=== PATIENT | male | born 1940 | race Caucasian/White ===

== ENCOUNTER 2016-07-03 14:17 | Observation (INO) | payer MEDICARE, OTHER ==
[2016-07-03 14:58] LABS: Hematocrit 48.9 % (42.0-52.0); Hemoglobin 16.9 gm/dL (13.5-18.0); Mean Cell Volume 88.3 fl (78-100); Mean Corpuscular Hemoglobin 30.5 pg (27-31); Mean Corpuscular Hgb Conc 34.6 g/dl (32-36); Mean Platelet Volume 11.7 fl (6.0-9.5); Neutrophil # 3.9 K/mm3 (1.3-6.0); Neutrophil % 52.4 % (42-75.0); Platelet Count 195 K/mm3 (150-450); Red Blood Count 5.54 M/mm3 (4.7-6.0); Red Cell Distribution Width 13.7 % (11.5-14.0); White Blood Count 7.4 K/mm3 (4.0-10.5)
[2016-07-03 15:05] LABS: Albumin * 3.5 gm/dl (3.4-5.0); Anion Gap 12.3 mmol/L (6.8-13.8); BUN/Creatinine Ratio 14.6 (9.0-21.6); Bilirubin, Total 1.2 mg/dL (0.0-1.1); Ca. Corrected For Albumin 8.6 mg/dL (8.4-10.2); Calcium * 8.5 mg/dL (7.9-10.9); Carbon Dioxide 33.5 mmol/L (24-32.6); Potassium 2.8 mmol/L (3.4-4.6)
[2016-07-03] MEDS ORDERED: NORMAL SALINE 1,000 ML IV ONE (16:07)
--- OUTSIDE RECORDS SUMMARY | 2016-07-03 16:08 | XMS REPORT | Continuity of Care Document ---
:1940 Author Organization [facility] ([facility]) Address [address] [place] [address] Phone [phone] Care Team Providers Name Role Phone [phone], Self Referral Primary Care Provider [phone] Source Comments This disclosure is being made pursuant to the Care Everywhere program, applicable federal and state laws, and may not contain all informaitonavailable regarding this patient.[facility] ([facility]) Active Allergies and Adverse Reactions No Known Allergies Current Medications Prescription Sig. Disp. Refills Start Date End Date Status ATENOLOL 100 mg tablet Take 100 mg by 09/03/2014 Active mouth daily FUROSEMIDE 40 mg tablet Take 40 mg by 08/03/2014 Active mouth 2 times daily. HYDROCHLOROTHIAZIDE 25 mg Take 25 mg by 09/03/2014 Active tablet mouth daily HYDROCODONE-ACETAMINOPHEN Take 1 Tab by 08/31/2014 Active 5-325 mg per tablet mouth daily as needed LOSARTAN 100 mg tablet Take 100 mg by 09/28/2014 Active mouth daily warfarin 5 mg tablet take 1/2 tablet Active by oral route MWF, 1 tablet T,TH, Sat, Sun Active Problems Problem Noted Date Chronic atrial fibrillation 09/21/2014 Overview: Formatting of this note may be different from the original. CARDIOVASCULAR PROCEDURES Stress Tests: MPI (Normal EF, Normal study) - 01/20/2013 MPI (Normal EF, Normal study) - 09/23/2013 MPI (Normal EF, Normal study) - 04/21/2015 ECHO Echo: Normal EF. No significant valve disease. 09/11/2013 Echo: Normal EF. No significant valve disease. 05/10/2015 Essential hypertension, benign 09/21/2014 Atypical chest pain Anxiety Social History Tobacco Use Types Packs/Day Years Used Date Never Smoker Smokeless Tobacco: Never Used Alcohol Use Drinks/Week oz/Week Comments No Last Filed Vital Signs Vital Sign Reading Time Taken Blood Pressure 122/60 12/07/2015 12:19 PM CDT Pulse 82 12/07/2015 12:19 PM CDT Temperature - - Respiratory Rate - - Height 1.854 m (6' 1") 12/07/2015 12:19 PM CDT Weight 116.574 kg (257 lb) 12/07/2015 12:19 PM CDT Body Mass Index 33.91 12/07/2015 12:19 PM CDT Oxygen Saturation - - Plan of Care Date Type Specialty Providers Description 12/05/2016 Appointment Heart and Vascular MattMarisela MD Chief Comp: Patient [address] [place] [address] Visit [phone] (Fax) Health Maintenance Due Date Last Done Comments Hepatitis B Vaccine (1 of 3 - Primary Series) 1940 Tdap Vaccine 1953 Lipid Disorder Screening 1960 Td Vaccine 1960 Colonoscopy 05/07/1992 Prostate Cancer Screening 1992 Zoster Vaccine 2002 Pneumococcal Vaccine (1 of 2 - PCV13) 2007 Influenza Vaccine: Seasonal (#1) 11/29/2015 Results from Last 3 Months Not on file
[2016-07-03] MEDS ORDERED: POTASSIUM CHLORIDE 20 MEQ TABLET.SA PO ONE ×2 (16:09→17:38)
--- NOTE | 2016-07-03 16:10 | ERNOTE ---
Dizziness ER Record Date of Service: 07/03/16 Presenting Symptoms: dizziness Time Seen by Provider: 07/03/16 15:57 Source: patient, RN notes reviewed, old records Exam Limitations: no limitations Immunizations: IMMUNIZATION HX Immunizations Up to Date Yes History of Influenza Vaccine No Hx Pneumococcal Vaccination No Allergies/Adverse Reactions: Allergies Allergy/AdvReac Type Severity Reaction Status Date / Time No Known Allergies Allergy Verified 07/03/16 14:38 Home Medications: HOME MEDICATIONS Warfarin Sodium [Coumadin] 5 mg PO DAILY 02/17/13 [Last Taken Unknown] Atenolol [Tenormin (Atenolol)] 100 mg PO DAILY 09/30/13 [Last Taken Unknown] Furosemide [Lasix] 40 mg PO DAILY 09/30/13 [Last Taken Unknown] Hydrochlorothiazide 25 mg PO DAILY 09/30/13 [Last Taken Unknown] Losartan Potassium [Cozaar] 100 mg PO DAILY 01/31/14 [Last Taken Unknown] HYDROcodone/ACETAMINOPHEN [[place] 5-325] 1 - 2 tab PO Q4H PRN #15 tab 08/31/14 [ Last Taken Unknown] Albuterol Sulfate [Proair Respiclick] 90 mcg IH Q4H PRN 07/03/16 [Last Taken Unknown] - History of Present Illness Narrative: 76 y/o male brought to the ED from the clinic for a low blood pressure and dizziness/weakness. He was being seen today to get something for the cough that he has had for a week. He states that he has had fevers and has not been eating or drinking much. He has not been able to lay down to sleep due to the cough and shortness of breath. Review of Systems - Review of Systems Constitutional: Present: fever, chills, fatigue, malaise EYE: Present: no symptoms reported ENT: Present: nose congestion, nasal drainage. Absent: ear pain, sore throat Respiratory: Present: shortness of breath, cough, orthopnea Cardiology: Absent: chest pain, syncope, edema Gastrointestinal/Abdominal: Absent: nausea, vomiting, diarrhea Genitourinary: Present: no symptoms reported Musculoskeletal: Present: muscle pain Skin: Absent: rash, lesions Neurological: Present: headache, dizziness/light-headedness Endocrine: Present: no symptoms reported Hematologic/Lymphatic: Present: no symptoms reported Psych: Present: no symptoms reported - Patient's Past Medical History Patient History - Medical: Arthritis, Depression, UTI'S Patient History - Cardiac/Respiratory: Atrial Fibrillation, Hypertension Patient History - Cancer: No Hx of Cancer Patient History - Surgical Procedures: Other - Social History Living Situations: spouse Psych History: No pertinent hx Smoking Status: Former smoker Alcohol Use: occasionally Drug Use: none - Immunizations Immunizations Up to Date: Yes Hx Pneumococcal Vaccination: No History of Influenza Vaccine: No Physical Exam - Physical Exam General Appearance: Present: wd/wn, alert, no apparent distress, other - appears to not feel well Eye Exam: Normal inspection: bilateral Ears, Nose, Throat: Present: normal ENT inspection Neck: Present: normal inspection, nontender, supple Respiratory: Present: no respiratory distress, no accessory muscle use, expiration (prolonged), crackles, rhonchi, wheezing Cardiovascular/Chest: Present: irregularly irregular, systolic murmur Gastrointestinal/Abdominal: Present: normal bowel sounds, nontender, nondistended, soft Extremity Exam: Present: normal inspection, no edema Neurological Exam: Present: alert, oriented, normal mood/affect, no motor/ sensory deficits Skin Exam: Present: normal color, warm/dry ED Progress - Results and Orders Patient's Lab Results:: I have reviewed the patient's lab results. - Vital Signs Patient's Vital Signs:: I have reviewed the patient's vital signs. Vital Signs: Vital Signs 07/03/16 07/03/16 07/03/16 14:35 14:51 15:44 Temperature 36.3 C L Pulse Rate 72 85 64 Respiratory 16 19 20 Rate Blood Pressure 102/47 109/66 112/60 O2 Sat by Pulse 92 93 93 Oximetry - EKG EKG: atrial fibrillation EKG read: Reviewed by me - X-Ray X-Ray #1 X-Ray: chest Interpretation: Reviewed by me X-ray Comments: IMPRESSION: 1. No focal acute cardiopulmonary finding. 2. Increased vascular and peripheral lung markings, stable. 3. Stable cardiomegaly. 4. Central bronchial wall prominence compatible with acute or chronic bronchitis/reactive airways disease. Also consider COPD. Electronically signed by Nando Jones M.D.. - Progress/Reassessment Chief Complaint: Dizziness Progress:: Improved Plan - Plan Plan: Dr. Humphrey contacted regarding patient, to be observation admit for COPD exacerbation, renal insufficiency and hypokalemia. O2 Sat has been in low 90's on RA, usually is in the upper 90's for him despite his COPD. Is anticoagulated for Afib - INR currently elevated at 4.3. Currently receiving IV NS bolus. 40 mEq KCl given po. Departure Clinical Impression: COPD with acute exacerbation, Hypokalemia, Acute renal insufficiency - Departure Disposition: [facility] Condition: Stable Referrals: Sindy Humphrey MD [Primary Care Provider] -
[2016-07-03] MEDS ORDERED: POTASSIUM CHLORIDE 20 MEQ TABLET.SA ONE (16:15)
[2016-07-03 16:34] LABS: Prothrombin Time (Patient) 45.5 Seconds (9.4-11.4)
[2016-07-03 16:36] LABS: INR 4.38 INR (0.90-1.10)
--- OUTSIDE RECORDS SUMMARY | 2016-07-03 16:45 | XMS REPORT | Continuity of Care Document ---
:1940 Author Organization [facility] ([facility]) Address [address] [place] [address] Phone [phone] Care Team Providers Name Role Phone [phone], Self Referral Primary Care Provider [phone] Source Comments This disclosure is being made pursuant to the Care Everywhere program, applicable federal and state laws, and may not contain all informaitonavailable regarding this patient.[facility] ([facility]) Active Allergies and Adverse Reactions No Known [...] Patient [address] [place] [address] Visit [phone] (Fax) Health Maintenance Due Date Last Done [...]
--- NOTE | 2016-07-03 17:17 | HP ---
Chief Complaint - Chief Complaint Date of Service: 07/03/16 Time of Service: 17:16 Chief Complaint: cough History of Present Illness: Bartolo Carlos, is a 76-year-old white male, with previous medical history of hypertension, COPD, atrial fibrillation, who was admitted on 07/03/2016 for coughing and dizziness which shortness of breath. One week ,prior to admission patient started having cough, mostly nonproductive, associated with fever and chills. He started having poor intake of fluids too. Because his cough with would not stop, he came to the clinic today to get cough medication. In the clinic he was found to be dizzy and with low blood pressure and so they sent him to the emergency room. In emergency room he was given IV fluids and was found to have a potassium of 2.8 with the elevated BUN/creatinine. His chest x- ray showed no acute cardiopulmonary findings but did show chronic findings of COPD. He was then admitted for observation further treatment. - Patient's Past Medical History Patient History - Medical: Arthritis, Depression, UTI'S Patient History - Cardiac/Respiratory: Atrial Fibrillation, Hypertension Patient History - Cancer: No Hx of Cancer Patient History - Surgical Procedures: Other - Family History Brother Family History - Medical: Family History - Cancer: Throat - Social History Living Situations: spouse Psych History: No pertinent hx Smoking Status: Former smoker Alcohol Use: occasionally Drug Use: none - Immunizations Immunizations Up to Date: Yes Hx Pneumococcal Vaccination: No History of Influenza Vaccine: No Review Of Systems (GEN) - Review of Systems Generalized/Overall Review: Present: Chills, Fever, Fatigue EENTM: Present: No Symptoms Reported Respiratory: Present: Cough, Shortness of Breath Cardiac: Absent: Chest Pain, Edema, Palpitations Abdominal: Present: Abdominal Pain - from coughing. Absent: Nausea, Vomiting Genitourinary: Absent: Urgency, Frequency Musculoskeletal: Present: Joint Pain Immunizations: IMMUNIZATION HX Immunizations Up to Date Yes History of Influenza Vaccine No Hx Pneumococcal Vaccination No Allergies/Adverse Reactions: Allergies Allergy/AdvReac Type Severity Reaction Status Date / Time No Known Allergies Allergy Verified 07/03/16 14:38 Home Medications: HOME MEDICATIONS Warfarin Sodium [Coumadin] 5 mg PO DAILY 02/17/13 [Last Taken Unknown] Atenolol [Tenormin (Atenolol)] 100 mg PO DAILY 09/30/13 [Last Taken Unknown] Furosemide [Lasix] 40 mg PO DAILY 09/30/13 [Last Taken Unknown] Hydrochlorothiazide 25 mg PO DAILY 09/30/13 [Last Taken Unknown] Losartan Potassium [Cozaar] 100 mg PO DAILY 01/31/14 [Last Taken Unknown] HYDROcodone/ACETAMINOPHEN [[place] 5-325] 1 - 2 tab PO Q4H PRN #15 tab 08/31/14 [ Last Taken Unknown] Albuterol Sulfate [Proair Respiclick] 90 mcg IH Q4H PRN 07/03/16 [Last Taken Unknown] Exam - Exam Vital Signs: Vital Signs - Last Taken Temp 36.3 C L 07/03/16 14:35 Pulse 71 07/03/16 16:38 Resp 16 07/03/16 16:38 BP 127/74 07/03/16 16:38 Pulse Ox 94 07/03/16 16:38 Constitutional: Present: Alert, Oriented x3, Cooperative ENT Exam: Present: hearing grossly normal Eye Exam: bilateral eye: normal inspection, PERRL, EOMI Neck: Present: supple Back Exam: Present: no CVA tenderness Breasts: Present: Exam deferred Respiratory: Present: decreased breath sounds, wheezing - occasional, No rales Cardiovascular/Chest: Present: no JVD, no murmur, irregularly irregular Abdomen: Present: Normal bowel sounds, soft, nontender, nondistended, tender - muscles Extremity: Present: no pedal edema, no calf tenderness Diagnostic Studies: Laboratory Results WBC 7.4 K/mm3 (4.0-10.5) 07/03/16 14:47 RBC 5.54 M/mm3 (4.7-6.0) 07/03/16 14:47 Hgb 16.9 gm/dL (13.5-18.0) 07/03/16 14:47 Hct 48.9 % (42.0-52.0) 07/03/16 14:47 MCV 88.3 fl (78-100) 07/03/16 14:47 MCH 30.5 pg (27-31) 07/03/16 14:47 MCHC 34.6 g/dl (32-36) 07/03/16 14:47 RDW 13.7 % (11.5-14.0) 07/03/16 14:47 Plt Count 195 K/mm3 (150-450) 07/03/16 14:47 MPV 11.7 fl (6.0-9.5) H 07/03/16 14:47 Immature Gran % (Auto) 0.30 % (0.001-0.429) 07/03/16 14:47 Immature Gran # (Auto) 0.02 K/mm3 (0.000-0.0310) 07/03/16 14:47 Neutrophils % 52.4 % (42-75.0) 07/03/16 14:47 Lymphocytes % 33.6 % (20-51) 07/03/16 14:47 Monocytes % 12.9 % (0.0-9) H 07/03/16 14:47 Eosinophils % 0.3 % (0.0-3.0) 07/03/16 14:47 Basophils % 0.5 % (0.0-1.0) 07/03/16 14:47 Nucleated RBC % 0.0 k/mm3 (0-1) 07/03/16 14:47 Neutrophils # 3.9 K/mm3 (1.3-6.0) 07/03/16 14:47 Lymphocytes # 2.5 k/mm3 (1.5-3.5) 07/03/16 14:47 Monocytes # 1.0 k/mm3 (0.0-1.0) 07/03/16 14:47 Eosinophils # 0.0 k/mm3 (0.0-0.7) 07/03/16 14:47 Absolute Basophils 0.0 k/mm3 (0.0-0.1) 07/03/16 14:47 PT 45.5 Seconds (9.4-11.4) H 07/03/16 14:47 INR (Anticoag Therapy) 4.38 INR (0.90-1.10) H* 07/03/16 14:47 Sodium 139 mmol/L (132-142) 07/03/16 14:47 Plasma Sodium 139 mmol/L (130-142) 07/03/16 14:47 Potassium 2.8 mmol/L (3.4-4.6) L D 07/03/16 14:47 Chloride 96 mmol/L (97-106) L 07/03/16 14:47 Carbon Dioxide 33.5 mmol/L (24-32.6) H 07/03/16 14:47 Anion Gap 12.3 mmol/L (6.8-13.8) 07/03/16 14:47 BUN 32 mg/dL (6-23) H D 07/03/16 14:47 Creatinine 2.19 mg/dL (0.4-1.4) H D 07/03/16 14:47 Est GFR (Non-Af Amer) 31 mL/min (60-130) L D 07/03/16 14:47 BUN/Creatinine Ratio 14.6 (9.0-21.6) 07/03/16 14:47 Random Glucose 124 mg/dL (70-110) H 07/03/16 14:47 Calcium 8.5 mg/dL (7.9-10.9) 07/03/16 14:47 Calcium Adj for Albumin 8.6 mg/dL (8.4-10.2) 07/03/16 14:47 Total Bilirubin 1.2 mg/dL (0.0-1.1) H 07/03/16 14:47 AST 48 U/L (0-48) 07/03/16 14:47 ALT 39 U/L (19-67) 07/03/16 14:47 Alkaline Phosphatase 91 U/L (50-170) 07/03/16 14:47 Total Protein 8.0 gm/dL (6.2-8.2) 07/03/16 14:47 Albumin 3.5 gm/dl (3.4-5.0) 07/03/16 14:47 Influenza Type A Ag Negative (NEGATIVE) 07/03/16 16:21 Influenza Type B Ag Negative (NEGATIVE) 07/03/16 16:21 Assessment/Plan - Assessment/Plan (1) COPD with acute exacerbation Assessment: likley due to acute bronchitis. will start IV Rocephin, and refer to RT for breathing treatments. will give IV solumedrol x 1. Problem: Acute (2) Acute renal insufficiency Assessment: continue with IVF replacment with 20 meq KCl. Problem: Acute (3) Hypokalemia Assessment: will replenish K. will give another 40 meq of KCL PO. Problem: Acute (4) Hypertension Problem: Acute Qualifiers: Hypertension type: essential hypertension Qualified Code(s): I10 - Essential (primary) hypertension (5) Afib Problem: Chronic Qualifiers: Atrial fibrillation type: chronic Qualified Code(s): I48.2 - Chronic atrial fibrillation
[2016-07-03] MEDS ORDERED: ALBUTEROL SULFATE 2.5 MG/0.5 ML VIAL.NEB IH PRN (17:31)
[2016-07-03] MEDS ORDERED: HYDROcodone/ACETAMINOPHEN 1 EACH TABLET PO PRN (17:31)
[2016-07-03] MEDS ORDERED: METHYLPREDNISOLONE SOD SUCC/PF 40 MG/ML VIAL IV ONE (17:35)
[2016-07-03] MEDS ORDERED: BENZONATATE 100 MG CAPSULE PO PRN (17:43)
[2016-07-03] MEDS ORDERED: ACETAMINOPHEN 325 MG TABLET PO PRN (17:44)
[2016-07-03] MEDS ORDERED: METHYLPREDNISOLONE SOD SUCC 80 MG in WATER FOR INJ.,BACTERIOSTATIC 0 ML IV ONE (17:45)
[2016-07-03] MEDS: POTASSIUM CHLORIDE 20 MEQ in NORMAL SALINE 1,000 ML IV SCH (17:58)
[2016-07-04] MEDS: POTASSIUM CHLORIDE 20 MEQ in NORMAL SALINE 1,000 ML IV SCH (02:34)
[2016-07-04 06:54] LABS: Anion Gap 12.4 mmol/L (6.8-13.8); BUN/Creatinine Ratio 22.6 (9.0-21.6); Calcium * 8.2 mg/dL (7.9-10.9); Carbon Dioxide 30.1 mmol/L (24-32.6); Estimated Creat Clear 50.2; Potassium 3.5 mmol/L (3.4-4.6)
[2016-07-04 06:59] LABS: Hematocrit 43.8 % (42.0-52.0); Hemoglobin 15.2 gm/dL (13.5-18.0); Mean Cell Volume 88.1 fl (78-100); Mean Corpuscular Hemoglobin 30.6 pg (27-31); Mean Corpuscular Hgb Conc 34.7 g/dl (32-36); Mean Platelet Volume 11.6 fl (6.0-9.5); Neutrophil % 50.3 % (42-75.0); Platelet Count 157 K/mm3 (150-450); Red Blood Count 4.97 M/mm3 (4.7-6.0); Red Cell Distribution Width 13.7 % (11.5-14.0)
[2016-07-04] MEDS ORDERED: LOSARTAN POTASSIUM 50 MG TABLET PO SCH (09:00)
[2016-07-04] MEDS ORDERED: ATENOLOL 100 MG TABLET PO SCH (09:00)
[2016-07-04 11:34] VITALS: BP 148/86
--- NOTE | 2016-07-04 12:55 | DS ---
(1) Acute renal insufficiency Problem: Acute (2) Hypertension Problem: Chronic Qualifiers: Hypertension type: essential hypertension Qualified Code(s): I10 - Essential (primary) hypertension (3) Hypokalemia Problem: Resolved (4) Afib Problem: Chronic Qualifiers: Atrial fibrillation type: chronic Qualified Code(s): I48.2 - Chronic atrial fibrillation Description of Stay: DATE OF ADMISSION: 07/03/16 DATE OF DISCHARGE: 07/04/16 DIAGNOSTICS: XRAY (07/03/16) 1. No focal acute cardiopulmonary finding. 2. Increased vascular and peripheral lung markings, stable. 3. Stable cardiomegaly. 4. Central bronchial wall prominence compatible with acute or chronic bronchitis /reactive airways disease. Also consider COPD. HOSPITAL COURSE Paresh is a 76 year old male with a history of HTN, COPD, afib on chronic coumadin (managed by the coumadin clinic at [facility]), and arthritis who was admitted with cough, dizziness, dyspnea and recent fever / chills. pt originally presented to the IM clinic but was taken to the ER due to low blood pressure. In the ER, he was given IV fluids and found to have a K+ of 2.8. Creatinine was also elevated at 2.19. pt was admitted with CRI, COPD exac, and hypokalemia. at home, pt used proair inhaler. will discharge with Rx for duoneb treatments and advair. was started on iv rocephin, will change pt to azithromycin at discharge. also given 80 mg IV steroids yesterday, will discharge with a small course of oral prednisone. at discharge, creatinine down to 1.4. pt states he is feeling better and denies any cp or dyspnea. pt also on coumadin for chronic afib. sees Avelina at the coumadin clinic. INR in ER on 07/03/16 was over 4. coumadin was held yesterday. per avelina recommendations, will told coumadin tonight (07/04/16) and then restart usual coumadin dose - pt is to follow up with avelina in the coumadin clinic on sunday. NEW MEDICATIONS: zpak prednisone duoneb breathing treatment advair FOLLOW-UP follow up with Dr. Hmuphrey in 1 week. Procedures Performed: none Discharge Disposition: Home self care Disposition: Home self-care Condition: Good Discharge Activity: Activity as tolerated Discharge Diet: Resume usual diet Referrals: Sindy Humphrey MD [Primary Care Provider] - Problem Oriented Discharge Instructions to Patient/Family: Chronic Obstructive Pulmonary Disease, [facility], How to Use a Nebulizer Additional Patient Instructions (free text): Hold Coumadin tonight (07/04/16) Resume usual coumadin dose tomorrow (07/05/16) Follow up with Avelina in the Coumadin Clinic on Sunday (07/07/16) Follow up with Dr. Humphrey in 1 week. Prescriptions (Any new or edited meds): Albuterol Sulfate/Ipratropium [Duoneb 2.5-0.5MG/3ML Soln] 3 ml IH QID #150 vial Azithromycin [Zithromax] 250 mg PO NOW #6 tablet Benzonatate 200 mg PO TID PRN #60 capsule PRN Reason: Cough Compressor, For Nebulizer [Ebase Controller] 1 each MC DAILY #1 each Fluticasone/Salmeterol [Advair 250-50 Diskus] 1 puff IH BID #1 inhaler Miscellaneous Medical Supply [Boules Quies Earplugs] 1 each MC DAILY #1 miscell predniSONE [Prednisone] 2 tab PO DAILY #14 tab Complete Home Medications List: Complete Home Medication List: Warfarin Sodium [Coumadin] 5 mg PO DAILY 02/17/13 Atenolol [Tenormin] 100 mg PO DAILY 09/30/13 Furosemide [Lasix] 40 mg PO DAILY 09/30/13 Hydrochlorothiazide 25 mg PO DAILY 09/30/13 Losartan Potassium [Cozaar] 100 mg PO DAILY 01/31/14 HYDROcodone/ACETAMINOPHEN [[place] 5-325] 1 - 2 tab PO Q4H PRN #15 tab 08/31/14 Albuterol Sulfate [Proair Respiclick] 90 mcg IH Q4H PRN 07/03/16 Albuterol Sulfate/Ipratropium [Duoneb 2.5-0.5MG/3ML Soln] 3 ml IH QID #150 vial 07/04/16 Azithromycin [Zithromax] 250 mg PO NOW #6 tablet 07/04/16 Benzonatate 200 mg PO TID PRN #60 capsule 07/04/16 Compressor, For Nebulizer [Ebase Controller] 1 each MC DAILY #1 each 03/07/17 Fluticasone/Salmeterol [Advair 250-50 Diskus] 1 puff IH BID #1 inhaler 07/04/16 Miscellaneous Medical Supply [Boules Quies Earplugs] 1 each MC DAILY #1 miscell 07/04/16 predniSONE [Prednisone] 2 tab PO DAILY #14 tab 07/04/16
[2016-07-04] MEDS ORDERED: WARFARIN SODIUM 5 MG TABLET PO SCH (17:00)
== END 2016-07-04 14:20 | disposition home or self-care (01) ==
LOC: ER 14:17 → MS 16:40
PROVIDERS: ADMIT Internal Medicine; ATTEND Internal Medicine
DX: J44.1 Chronic obstructive pulmonary disease with (acute) exacerbation (principal); J20.9 Acute bronchitis, unspecified; N28.9 Disorder of kidney and ureter, unspecified; E87.6 Hypokalemia; I48.2 Chronic atrial fibrillation; I10 Essential (primary) hypertension; Z87.891 Personal history of nicotine dependence
CPT/HCPCS: 36415; 71020; 80048; 80053; 85025; 85610; 87040; 87400; 93005; 96365; 96366; 96367; 96375; 99284; G0378

== ENCOUNTER 2019-10-15 06:30 | Inpatient (IN) ==
[~2019-10-15 06:30] MED LIST: ISOPROPYL ALCOHOL 480 APPL BTL MC ONE; MORPHINE SULFATE 15 MG TABLET.SA PO PRN; ROPIVACAINE HCL/PF 100 MG, EPINEPHrine 0.2 MG, KETOROLAC TROMETHAMINE 30 MG in NORMAL S... IJ PRN; TRANEXAMIC ACID 1,000 MG in NORMAL SALINE 100 ML IV PRN; ceFAZolin SODIUM 1 GM VIAL IV PRN; ceFAZolin SODIUM 1 GM VIAL ONE
[2019-10-15] MEDS ORDERED: LIDOCAINE HCL 20 ML VIAL ONE (07:02)
[2019-10-15] MEDS ORDERED: MIDAZOLAM HCL/PF 5 MG/ML VIAL ONE (07:02)
[2019-10-15] MEDS ORDERED: BUPIVACAINE HCL/EPINEPHRINE 50 ML VIAL IJ ONE (07:02)
[2019-10-15] MEDS ORDERED: BUPIVACAINE HCL/PF 10 ML VIAL ONE (07:03)
[2019-10-15] MEDS ORDERED: PROPOFOL VIAL IV ONE (07:03)
--- NOTE | 2019-10-15 07:43 | ANES ---
Anesthesia Pre Procedure Eval Vitals/Labs: Last Vital Signs Temp 36.5 C 10/15/19 06:31 Pulse 67 10/15/19 06:31 Resp 18 10/15/19 06:31 BP 182/92 H 10/15/19 06:31 Pulse Ox 96 10/15/19 06:31 HOME MEDICATIONS cholecalciferol (vitamin D3) 125 mcg (5,000 unit) tablet 5,000 unit PO DAILY 01/18/18 [Last Taken Unknown] warfarin 5 mg tablet 5 mg PO SUTUTH #90 tab 01/28/18 [Last Taken 10/10/19] metoprolol succinate 100 mg tablet,extended release 24 hr 100 mg PO DAILY #90 tab 11/04/18 [Last Taken 10/15/19 05:30] cyanocobalamin (vitamin B-12) 1,000 mcg tablet 1,000 mcg PO .MWF #36 tab 03/21/19 [Last Taken Unknown] warfarin 5 mg tablet See Rx Instructions PO 3XW #90 tab 03/31/19 [Last Taken 10/10/19] triamcinolone acetonide 0.1 % lotion 1 applic TP BID #60 ml 04/04/19 [Last Taken Unknown] gabapentin 300 mg capsule 900 mg PO TID #270 cap 05/12/19 [Last Taken Unknown] losartan 100 mg tablet 100 mg PO DAILY #90 tab 07/21/19 [Last Taken Unknown] hydrocodone 7.5 mg-acetaminophen 325 mg tablet 1 tab PO QID PRN #90 tab 09/19/19 [Last Taken Unknown] furosemide 40 mg tablet 40 mg PO BID #180 tab 10/06/19 [Last Taken Unknown] Allergies/Adverse Reactions: Allergies Allergy/AdvReac Type Severity Reaction Status Date / Time No Known Allergies Allergy Verified 10/15/19 06:42 - Planned Procedure Planned Procedure: LTK Medication List Reviewed:: Yes Allergies Verified: Yes Medical History (Last Reviewed 10/15/19 @ 07:41 by Angel Monzon CRNA) Hypertension (Chronic) Onset Date: Unknown Hip pain (Chronic) Onset Date: Unknown Depression (Chronic) Onset Date: Unknown Back pain (Chronic) Onset Date: Unknown with spinal stenosis r/o PAD r/o Pyriformis syndrome Atrial fibrillation (Chronic) Onset Date: Unknown Arthritis (Chronic) Onset Date: Unknown Surgical History (Last Reviewed 10/15/19 @ 07:41 by Angel Monzon CRNA) History of removal of cyst Onset Date: ~[address] Robertson Family History (Last Reviewed 10/15/19 @ 07:41 by Angel Monzon CRNA) Brother Cancer lung Brother , unknown age Cancer throat Mother No known health problems Father No known health problems - Family Anesthesia History Family History:: no untoward family reactions to anesthesia - Airway/Neck/Teeth Teeth Condition: poor condition Neck Exam: full range of motion Mallampatti Score: 3 Thyromental (T-M) distance: > 6 cm Mandibulo Hyoid distance: > 3 cm - Respiratory Respiratory History: COPD Respiratory Physical: lungs clear Smoking Status: Former smoker Sleep Apnea currently treated: No Sleep Apnea by current assessment: No - Cardiovascular Cardiac History: arrhythmia, hypertension Tolerate Activity: Fair Heart Sounds: Irregular - Gastrointestinal NPO since: MN - Anesthesia Assessment and Plan ASA Class: PS, III Anesthesia Type Plan: Spinal - adductor canal block Planned difficult intubation/equipment available: No
[2019-10-15] MEDS: RINGER'S SOLUTION,LACTATED 1,000 ML IV PRN ×3 (07:56→10:30)
[2019-10-15 08:07] LABS: Prothrombin Time (Patient) 13.2 Seconds (9.1-10.7)
[2019-10-15 08:10] LABS: INR 1.35 INR (0.92-1.08)
[2019-10-15] MEDS ORDERED: diphenhydrAMINE HCL 50 MG/ML VIAL IV PRN (10:33)
[2019-10-15] MEDS ORDERED: ACETAMINOPHEN 500 MG TABLET PO PRN (10:33)
[2019-10-15] MEDS ORDERED: ZOLPIDEM TARTRATE 5 MG TABLET PO PRN (10:33)
[2019-10-15] MEDS ORDERED: oxyCODONE HCL/ACETAMINOPHEN 1 TAB TABLET PO PRN (10:33)
[2019-10-15] MEDS ORDERED: MAGNESIUM HYDROXIDE 30 ML UDC PO PRN (10:33)
[2019-10-15] MEDS ORDERED: MAG HYDROX/ALUMINUM HYD/SIMETH 30 ML UDC PO PRN (10:33)
[2019-10-15] MEDS ORDERED: ONDANSETRON HCL/PF 2 MG/ML VIAL IV PRN (10:33)
--- NOTE | 2019-10-15 10:40 | OR ---
Operative Report - Dictated Report Narrative: Date: 10/15/2019 Preoperative diagnosis: Left knee degenerative joint disease. Postoperative diagnosis: Left knee degenerative joint disease. Procedure: Left total knee arthroplasty. Surgeon: Peterson Zacarias M.D. Practice Billing Associate: Gavin Jordan PA-C (provided and essential set of skilled, educated hands that assisted with transfer, positioning, prepping, draping, manipulation, retraction, placement of jigs, injection, insertion of implants, irrigation, closure wounds, and dressings all of which could not be performed by the available surgical crew) Anesthesia: Spinal with regional block and local periarticular joint injection. Complications: None Specimens: Bone. Estimated blood loss: Minimal. Tourniquet time: 105 Minutes at 325 millimeters of mercury. Retained implants: Depuy Attune size 9 left lugged cemented posterior stabilized femoral component. Size 8 fixed-bearing cemented tibial platform. 9 by 5 millimeter posterior stabilized cross-linked tibial insert. 41 millimeter medialized patella button. Indications: Mr. Carlos is a 79-year-old gentleman who has had longstanding left knee pain and arthrosis. This patient was followed in my clinic for period of time with significant complaints of left knee pain consistent with arthritic changes. He had failed conservative measures including, but not limited to, activity modification, passage of time, medications, and other conservative measures. Patient wished to proceed with surgical treatment. The risks, benefits, and alternatives were discussed in clinic. The risks of , blood clots, bleeding, infection, nerve/tendon blood vessel/ injury, malposition of components, intraoperative fracture, postoperative limited range of motion, persistent pain, failure of components, and need for additional procedures. Patient wished to proceed consent was obtained after answering all questions. Procedure: After marking the correct extremity on the floor, the patient was taken to the operating room. A timeout was performed. IV antibiotics consisting of Ancef were administered prior to the procedure. A regional followed by spinal anesthetic was induced by anesthesia, per my request, on the operative table with all bony prominences well-padded. Prakash catheter was placed, and a bump was placed under the operative side buttock. SCDs and JANETT hose were utilized on the nonoperative leg. A well-padded tourniquet was applied to the operative thigh. The operative leg was then pre-scrubbed with alcohol, prepped, and draped in a standard sterile fashion. After exsanguinating the extremity with an Esmarch bandage, the tourniquet was inflated. After marking out the anterior knee for standard incision centered over the patella, the skin was incised and dissected down to the joint retinaculum. The joint retinaculum was marked out as well as the horizontal axis of the patella, and a standard medial parapatellar arthrotomy was then made. The most proximal aspect of the quadriceps tendon and the patella tendon insertion were protected from release. A partial synovectomy was performed as well as a resection of the infrapatellar fat pad. The distal femoral fat pad proximal to the trochlea was also resected using cautery. The soft tissues were elevated off the medial aspect of the proximal tibia using a Blank elevator ensuring that we did not transect the medial collateral ligament. Upon initial evaluation range of motion was approximately 5 degrees to 110 degrees of flexion. There were signs of advanced arthrosis in the medial, patellofemoral greater than lateral joint spaces. There were large marginal osteophytes which were removed with a rongeur. The knee was hyperflexed and the patella was tucked laterally. Protecting the surrounding soft tissues with Homans, an entry drill was placed down the femoral canal using Whitesides line for guidance into the entry point. The intramedullary femoral alignment jacobo was utilized in order to cut the distal femur in 5 degrees of valgus resecting 10 millimeters of bone. Next the distal femur was sized to a size 9. A posterior referencing guide was utilized to place the distal femoral cutting block in 3 degrees of external rotation. This was pinned into place. The rotation was confirmed both visually and based on anatomic landmarks. The 4 in 1 cutting jig of the appropriate size was utilized in order to make all bony cuts. The ar wing was used to ensure no notching. Retractors were utilized in order to protect surrounding soft tissues. This cut did not result in any excessive notching. We then cut the box centered over the distal femur. This allowed for resection of the anterior and posterior cruciate ligaments. I then turned my attention to the preparation of the tibia. Using an extra medullary tibial alignment jacobo, 6 millimeters of bone was resected off the medial articular surface. This was made perpendicular to the mechanical axis of the joint with the alignment jacobo centered over the ankle mortise. The alignment jacobo was checked and was noted to be parallel to the mechanical axis, centered over the medial one third of the tibial tubercle, paralleling the anterior surface of the tibia. We then turned our attention to the remaining meniscus and soft tissues. These were removed while protecting the surrounding ligaments and soft tissues. The marginal osteophytes off the anterior, posterior, medial, lateral aspects of the femur and tibia were removed. The tibia was sized out to a size 8. Next the tibia was drilled and punched in an externally rotated position. Next the trial femur and a series of tibial inserts were utilized in order to allow for full extension and maximal flexion. It was found that a 5 millimeter insert gave the best range of motion and stability at multiple flexion points as well as at full extension there was less than 2 mm of gapping both medially and laterally. There is minimal anterior translation with the knee at 90 degrees of flexion and no signs of being able to dislocate the knee. The patella was then prepared. The initial thickness was 27 millimeters. This was reamed down to 16 millimeters parallel to the anterior surface of the patella. It was sized out to a size 41 medialized patella button. This was then drilled and trialed. Without any medial restraint the patella tracked appropriately and did not sublux or dislocate. At this point, it was felt these were the appropriate sized implants, and all trials were removed. The standard periarticular joint injection consisting of ropivacaine, Toradol, and epinephrine were injected into the periarticular joint tissues. The bony surfaces were thoroughly irrigated with a pulsatile-suction saline irrigation device. A bone plug from the prior resected anterior chamfer cut was placed into the drill hole at the distal femur. The bony surfaces were then dried in preparation for placement of the implants. The cement was vacuum mixed per the violin mechanic's instructions. The cement was placed on the dry bony surfaces and posterior aspect of the implants. The implants were impacted into place, removing all extruded cement. At this point anesthesia administered tranexamic acid per protocol intravenously. The knee was placed in extension with axial loading with the trial insert while the cement cured. Once the cement cured, all remaining extruded cement was removed. The knee was placed through a range of motion with the trial insert to ensure appropriate range of motion and stability. Final range of motion was approximately 0 to 120 degrees. The knee was again thoroughly irrigated with pulsatile saline lavage. The final polyethylene insert was then impacted into place ensuring no retained soft tissues. The remaining periarticular joint injection was injected. A medium Hemovac drain was placed exiting superior laterally. The knee was then placed over a triangle and the arthrotomy was closed with interrupted #1 Vicryl after thoroughly irrigating the joint. The deep and subcutaneous tissues were closed with interrupted 0 and 3-0 Vicryl respectively. Skin was closed with a running subcutaneous 3-0 Monocryl and Prineo Dermabond dressing. 4 x 4's, Sof-Rol, and a full leg Jay wrap were applied. All sponge, needle, blade, and instrument counts were correct prior to closing the wounds. Postoperative condition: The patient was awoken and transferred to the postanesthesia care unit in stable condition. Plan is to be admitted to the inpatient medical/surgical floor postoperatively for 24 hours of IV antibiotics, physical therapy, occupational therapy, and medical comanagement. Patient will be weightbearing as tolerated with range of motion as tolerated. DVT prophylaxis will be with SCDs, JANETT hose, and pharmacological anticoagulation. Anticipated hospital stay is approximately 1-3 days.
--- NOTE | 2019-10-15 11:07 | ANES ---
Post Anesthesia Assessment - Vital Signs Vitals: Last Vital Signs Temp 36.8 C 10/15/19 11:00 Pulse 55 L 10/15/19 11:00 Resp 14 10/15/19 11:00 BP 125/56 10/15/19 11:00 Pulse Ox 97 10/15/19 11:00 Airway Patency: Normal - Mental Status Level Of Consciousness: Awake - Pain Level Pain Score: 0 - N/V Assessment Nausea/Vomiting Presence: None Dehydration:: No
--- NOTE | 2019-10-15 11:07 | ANES ---
Post Anesthesia Discharge - Transfer of Care Transfer of Care handoff given to nurse: Yes - Discharge from PACU Discharge from PACU when meets criteria: Yes
--- NOTE | 2019-10-15 11:10 | ANES ---
Anesthesia Procedure Note Procedure Note: ANESTHESIA PROCEDURE NOTE Date of procedure: 10/15/2019. Time of procedure: 12 17. Performed by: Shawn Monzon CRNA Senior Health Physics Technician: Laurie Baird RN . Preprocedure diagnosis: Left knee DJD. Post procedure diagnosis: Same. Procedure: Ultrasound-guided left adductor canal block Indications: Postoperative analgesia. Findings: Patient brought to operating room #4 and given a spinal anesthetic. Patient's left inner thigh was prepped with ChloraPrep. Ultrasound was utilized to identify the saphenous nerve in the left adductor canal. 20-gauge 4 inch regional block needle was advanced under ultrasound guidance until tip of needle was placed just proximal to saphenous nerve. 30 mL of 0.25% Marcaine with epinephrine 1-200,000 was injected with adequate spread of local anesthesia noted around the nerve. Regional block needle was removed intact. EBL: Minimal. Fluids: N/A. Specimen: N/A. Post procedure condition: The patient tolerated the procedure well. No complications were noted. Thank you for this consultation Shawn Monzon CRNA
[2019-10-15] MEDS: DEXTROSE 5%-LACTATED RINGERS 1,000 ML IV PRN ×2 (11:45→20:03)
[2019-10-15] MEDS: KETOROLAC TROMETHAMINE 15 MG/ML VIAL IV SCH ×3 (11:47→22:00)
[2019-10-15] MEDS: ceFAZolin SODIUM 1 GM in DEXTROSE 5 % IN WATER 100 ML IV SCH ×6 (13:24→23:52)
[2019-10-15] MEDS: GABAPENTIN 300 MG CAPSULE PO SCH ×2 (13:26→17:45)
[2019-10-15] MEDS ORDERED: WARFARIN SODIUM 5 MG TABLET PO SCH (17:00)
[2019-10-15] MEDS: FUROSEMIDE 40 MG TABLET PO SCH (20:00)
[2019-10-15] MEDS: TRIAMCINOLONE ACETONIDE 15 APPL TUBE TP SCH (20:01)
[2019-10-15] MEDS: MORPHINE SULFATE 15 MG TABLET.SA PO SCH (20:01)
[2019-10-15] MEDS ORDERED: SENNOSIDES/DOCUSATE SODIUM 1 TAB TABLET PO SCH (21:00)
[2019-10-16] MEDS: KETOROLAC TROMETHAMINE 15 MG/ML VIAL IV SCH ×2 (04:10→11:49)
[2019-10-16 06:45] LABS: Hematocrit 38.5 % (42.0-52.0); Hemoglobin 12.4 gm/dL (13.5-18.0); Mean Cell Volume 95.8 fl (78-100); Mean Corpuscular Hemoglobin 30.8 pg (27-31); Mean Corpuscular Hgb Conc 32.2 g/dl (32-36); Mean Platelet Volume 10.4 fl (8-11.3); Platelet Count 192 K/mm3 (150-450); Red Blood Count 4.02 M/mm3 (4.7-6.0); Red Cell Distribution Width 14.6 % (11.5-14.0); White Blood Count 8.7 K/mm3 (4.0-10.5)
[2019-10-16 06:57] LABS: Anion Gap 7.9 mmol/L (6.8-13.8); BUN/Creatinine Ratio 13.5 (9.0-21.6); Calcium * 8.4 mg/dL (7.9-10.9); Estimated Creat Clear 51.1; Potassium 3.9 mmol/L (3.4-4.6)
[2019-10-16 08:33] LABS: Prothrombin Time (Patient) 12.7 Seconds (9.1-10.7)
[2019-10-16 08:36] LABS: INR 1.3 INR (0.92-1.08)
[2019-10-16] MEDS ORDERED: METOPROLOL SUCCINATE 100 MG TABLET.SA PO SCH (09:00)
[2019-10-16] MEDS ORDERED: LOSARTAN POTASSIUM 50 MG TABLET PO SCH (09:00)
[2019-10-16] MEDS ORDERED: CHOLECALCIFEROL 5,000 UNIT TABLET PO SCH (09:00)
[2019-10-16] MEDS: GABAPENTIN 300 MG CAPSULE PO SCH ×2 (09:46→14:18)
[2019-10-16] MEDS: MORPHINE SULFATE 15 MG TABLET.SA PO SCH (09:46)
[2019-10-16] MEDS: FUROSEMIDE 40 MG TABLET PO SCH (09:46)
[2019-10-16] MEDS: TRIAMCINOLONE ACETONIDE 15 APPL TUBE TP SCH (09:47)
--- NOTE | 2019-10-16 12:19 | DS ---
(1) Status post left ankle joint replacement Problem: Acute (2) COPD (chronic obstructive pulmonary disease) Problem: Chronic Qualifiers: (3) CRF (chronic renal failure) Problem: Chronic Qualifiers: (4) Hypertension Problem: Chronic Date of Discharge:: 10/16/19 Hospital Course: Mr. Carlos was admitted to the floor after undergoing left total knee arthroplasty. Tolerated this well. Was admitted to the floor postoperatively for 24 hours of IV antibiotics, pain control, medical comanagement, and occupational and physical therapy. OT and PT were consulted to assist with activities of daily living and ambulation. Was made weightbearing as tolerated with range of motion as tolerated. Pain was initially controlled with IV regimen. This was transitioned to oral once tolerating a by mouth intake. Was resumed on home diet and medications. Had a Prakash catheter inserted and the operating room which was discontinued on postoperative day 1. A drain was placed intraoperatively into the knee which was discontinued on postoperative day 1. Coumadin SCD and JANETT hose were utilized for DVT prophylaxis. Vital signs remained stable to the hospital course. Serial labs were obtained which showed a final hemoglobin of 12.4 g down from 14.0 g preoperatively grams. BMP was reviewed and was stable. Physical examination throughout the hospital course showed an extremity that had sensation that was intact to light touch, palpable pulses, a benign wound, motor intact to the toes, ankle, and knee. Knee range of motion was approximately 5 degrees to 70 degrees. Once an oral pain regimen was tolerated and physical therapy goals were met, it was felt that they were stable for discharge to home. Patient did have some bloody angel kthrough on his dressings. Dressings taken down on postop day 1 and due to drainage the pernio dressing had failed. New pernio dressing applied along with 4 x 4's and compression. This was rechecked in the afternoon and the dressing was intact with no further active bleeding. Drain was pulled at this time and new compressive dressing applied. Instructions: Continue with weightbearing as tolerated and range of motion as tolerated. It is OK to shower after this weekend if no further drainage. If you note any drainage or for comfort you can cover with dry gauze and tape. Change every 2-3 days as needed. Continue with physical therapy. Resume home diet. Report any fever over 101.5 Fahrenheit, uncontrolled pain, increased drainage, foul odor of drainage, new or increased calf pain or shortness of breath, or any other significant complaints. Recheck INR Sunday on outpatient basis. Continue with JANETT hose on the operative extremity until instructed otherwise. No driving until instructed otherwise. Follow up in approximately 10-14 days. Procedures Performed: see notes below List Procedures: Status post left knee replacement Results and Findings: Lab Pending Results 10/15/19 07:40: PT 13.2 H, INR (Anticoag Therapy) 1.35 H 10/16/19 06:00: PT 12.7 H, INR (Anticoag Therapy) 1.30 H 10/16/19 06:40: WBC 8.7, RBC 4.02 L, Hgb 12.4 L, Hct 38.5 L, MCV 95.8, MCH 30.8, MCHC 32.2, RDW 14.6 H, Plt Count 192, MPV 10.4 10/16/19 06:40: Sodium 142, Plasma Sodium 142, Potassium 3.9, Chloride 107 H, Carbon Dioxide 31.0, Anion Gap 7.9, BUN 18, Creatinine 1.33, Est GFR (Non-Af Amer) 55 L, BUN/Creatinine Ratio 13.5, Random Glucose 102, Calcium 8.4 Discharge Location: Home Disposition: Home self-care Condition: Good Discharge Activity: Activity as tolerated, Weight bearing, Other - With wheeled walker Discharge Diet: Low salt Referrals: Sindy Humphrey MD [Primary Care Provider] - Additional Patient Instructions (free text): Physical Therapy appointment at [facility] outpatient rehab SundayOctober 16 at 2:00pm Follow up Orthopedic office appointment on October 29 at 8:45am. Prescriptions (Any new or edited meds): Morphine Sulfate [Ms Contin] 15 mg PO Q12H #14 tablet.sa Transmission Status: Received by [facility] #[id number] oxyCODONE HCL/ACETAMINOPHEN [Percocet 5 MG/325 MG] 2 tab PO Q4H PRN #56 tab PRN Reason: Moderate Pain (Pain Scale 4-6) Transmission Status: Received by [facility] #[id number] Sennosides/Docusate Sodium [Senokot-S] 2 tab PO HS #30 tab Transmission Status: Pending to [facility] #[id number] Complete Home Medications List: Complete Home Medication List: cholecalciferol (vitamin D3) 125 mcg (5,000 unit) tablet 5,000 unit PO DAILY 01/18/18 metoprolol succinate 100 mg tablet,extended release 24 hr 100 mg PO DAILY #90 tab 11/04/18 cyanocobalamin (vitamin B-12) 1,000 mcg tablet 1,000 mcg PO .MWF #36 tab 03/21/19 warfarin 5 mg tablet See Rx Instructions PO 3XW #90 tab 03/31/19 triamcinolone acetonide 0.1 % lotion 1 applic TP BID #60 ml 04/04/19 gabapentin 300 mg capsule 900 mg PO TID #270 cap 05/12/19 losartan 100 mg tablet 100 mg PO DAILY #90 tab 07/21/19 furosemide 40 mg tablet 40 mg PO BID #180 tab 10/06/19 Morphine Sulfate [Ms Contin] 15 mg PO Q12H #14 tablet.sa 10/16/19 Sennosides/Docusate Sodium [Senokot-S] 2 tab PO HS #30 tab 10/16/19 Warfarin Sodium [Coumadin] 2.5 mg PO MoFr@1700 tablet 10/16/19 oxyCODONE HCL/ACETAMINOPHEN [Percocet 5 MG/325 MG] 2 tab PO Q4H PRN #56 tab 10/16/19 Amb Orders for Discharge: PT Evaluation and Treatment* Facility: [facility], Location: Rehabilitation Services
[2019-10-16 13:35] VITALS: BP 143/72
[2019-10-17] MEDS ORDERED: CYANOCOBALAMIN 1,000 MCG TABLET PO SCH (09:00)
[2019-10-17] MEDS ORDERED: WARFARIN SODIUM 5 MG TABLET PO SCH (10:45)
[2019-10-17] MEDS ORDERED: WARFARIN SODIUM 2.5 MG TABLET PO SCH (17:00)
== END 2019-10-16 16:10 | disposition home or self-care (01) | DRG 470 ==
LOC: MS 06:30
PROVIDERS: ADMIT Orthopaedic Surgery; ATTEND Orthopaedic Surgery
CPT/HCPCS: 36415; 73560; 80048; 85027; 85610; 97110; 97116; 97161; 97165

== ENCOUNTER 2020-10-19 12:45 | Observation (INO) ==
[2020-10-19 14:53] LABS: Hemoglobin 13.9 gm/dL (13.5-18.0); Mean Cell Volume 93.7 fl (78-100); Mean Corpuscular Hemoglobin 30.3 pg (27-31); Mean Corpuscular Hgb Conc 32.3 g/dl (32-36); Platelet Count 206 K/mm3 (150-450); Red Blood Count 4.59 M/mm3 (4.7-6.0); Red Cell Distribution Width 14.9 % (11.5-14.0); White Blood Count 8.1 K/mm3 (4.0-10.5)
[2020-10-19 14:58] LABS: Prothrombin Time (Patient) 28.1 Seconds (9.1-10.7)
[2020-10-19 14:59] LABS: INR 2.84 INR (0.92-1.08)
[2020-10-19 15:00] LABS: Total Cells Counted 100
[2020-10-19 15:24] LABS: Atypical (Reactive) Lymph 7 % (0-2); Eosinophil 4 % (0-3); Lymphocyte 16 % (20-51); Monocyte 4 % (0-9); Neutrophil 69 % (42-75); Neutrophil # 5.6 K/mm3 (1.3-6.0)
[2020-10-19 15:25] LABS: ALT 24 U/L (19-67); AST 23 U/L (0-48); Albumin * 3.4 gm/dl (3.4-5.0); Alkaline Phosphatase * 174 U/L (50-170); Anion Gap 7.5 mmol/L (6.8-13.8); BNP * 1993 pg/mL (5-650); BUN/Creatinine Ratio 16.5 (9.0-21.6); Bilirubin, Total 1.2 mg/dL (0.0-1.1); Blood Urea Nitrogen 18 mg/dL (6-23); CK Total * 40 U/L (0-259); CKMB 0.9 ng/mL (0.0-9.0); Ca. Corrected For Albumin 8.4 mg/dL (8.4-10.2); Calcium * 8.2 mg/dL (7.9-10.9); Carbon Dioxide 29.1 mmol/L (24-32.6); Chloride 106 mmol/L (97-106); Chol/HDL Risk Ratio 3.1 mg/dL (3.3-5.0); Cholesterol 134 mg/dL (0-200); Glucose * 98 mg/dL (70-110); HDL Cholesterol 42 mg/dL (40-60); LDL Cholesterol 79 mg/dL (70-130); Potassium 3.6 mmol/L (3.4-4.6); Sodium 139 mmol/L (132-142); Total Protein 7.1 gm/dL (6.2-8.2); Triglycerides 67 mg/dL (30-200); Troponin I Less than 0.017 ng/mL (0.00-0.10); VLDL Cholesterol 13 mg/dL (5-40)
[2020-10-19 15:26] LABS: Platelet Estimate Normal (NORMAL); RBC Morphology Normal (NORMAL)
[2020-10-19] MEDS ORDERED: ALBUTEROL SULFATE/IPRATROPIUM 3 ML NEBU IH PRN (15:47)
[2020-10-19] MEDS ORDERED: HYDROcodone/ACETAMINOPHEN 1 EACH TABLET PO PRN (15:47)
[2020-10-19] MEDS: POTASSIUM CHLORIDE 20 MEQ TABLET.SA PO SCH (16:51)
[2020-10-19] MEDS: GABAPENTIN 300 MG CAPSULE PO SCH (16:51)
[2020-10-19] MEDS: FUROSEMIDE 10 MG/ML VIAL IV SCH (16:52)
[2020-10-19] MEDS ORDERED: LOSARTAN POTASSIUM 50 MG TABLET PO SCH (17:00)
[2020-10-19] MEDS ORDERED: WARFARIN SODIUM 5 MG TABLET PO SCH (17:00)
--- NOTE | 2020-10-19 17:11 | PN ---
Jennifer Note - Interim Date: 10/19/20 Time: 17:10 Narrative: 10/19/20 17:10 The patient seen and examined in the floor. Labs and imaging studies were reviewed. His BNP is not so much differnet from his preivious one and zaira r showed only mild interstitial prominence. Will cancel his follow up Echo in the morning. His acute exacerbation is likely due to his noncompliance with low salt diet rather than worsening of cardiac function or PHTN. My clinic notes will serve as my H & P for this admission.
[2020-10-19] MEDS ORDERED: ALBUTEROL SULFATE 200 PUFF INHALER IH PRN (18:21)
--- NOTE | 2020-10-19 18:57 | PN ---
Jennifer Note - Interim Date: 10/19/20 Time: 18:55 Narrative: 10/19/20 18:55 ABG likely venous rather than arterial. Patient is sitting in his recliner Saturating 95% on RA as per nurse, not cyanotic.
[2020-10-19] MEDS: TRIAMCINOLONE ACETONIDE 0.1% TP SCH (20:00)
[2020-10-19] MEDS ORDERED: FUROSEMIDE 10 MG/ML VIAL IV SCH (21:00)
[2020-10-20] MEDS: FUROSEMIDE 10 MG/ML VIAL IV SCH (07:20)
[2020-10-20] MEDS: POTASSIUM CHLORIDE 20 MEQ TABLET.SA PO SCH ×2 (07:30→07:59)
[2020-10-20] MEDS: CHOLECALCIFEROL 5,000 UNIT TABLET PO SCH ×2 (07:30→07:59)
[2020-10-20] MEDS: GABAPENTIN 300 MG CAPSULE PO SCH ×3 (07:30→12:06)
[2020-10-20] MEDS: METOPROLOL SUCCINATE 100 MG TABLET.SA PO SCH ×2 (07:30→07:59)
[2020-10-20] MEDS: CYANOCOBALAMIN 1,000 MCG TABLET PO SCH ×2 (07:30→07:59)
[2020-10-20] MEDS: TRIAMCINOLONE ACETONIDE 0.1% TP SCH (07:59)
[2020-10-20 08:30] LABS: Anion Gap 12.2 mmol/L (6.8-13.8); BUN/Creatinine Ratio 14.3 (9.0-21.6); Calcium * 8.6 mg/dL (7.9-10.9); Carbon Dioxide 29.3 mmol/L (24-32.6); Potassium 3.5 mmol/L (3.4-4.6)
--- NOTE | 2020-10-20 08:40 | DS ---
(1) Acute respiratory failure with hypoxia Problem: Resolved (2) Edema Problem: Acute Qualifiers: Edema type: unspecified Qualified Code(s): R60.9 - Edema, unspecified (3) Dyspnea on exertion Problem: Acute (4) CHF (congestive heart failure) Problem: Resolved Qualifiers: Heart failure type: systolic Heart failure chronicity: acute on chronic Qualified Code(s): I50.23 - Acute on chronic systolic (congestive) heart failure (5) Atrial fibrillation Problem: Chronic (6) COPD (chronic obstructive pulmonary disease) Problem: Chronic Qualifiers: COPD type: unspecified COPD Qualified Code(s): J44.9 - Chronic obstructive pulmonary disease, unspecified (7) Hypertension Problem: Chronic Qualifiers: Hypertension type: essential hypertension Qualified Code(s): I10 - Essential (primary) hypertension (8) Pulmonary hypertension Problem: Chronic Date of Discharge:: 10/20/20 Hospital Course: Paresh Carlos is a 80-year-old white male with past medical history significant for chronic atrial fibrillation, hypertension, pulmonary hypertension, chronic renal failure, COPD, chronic ischemic congestive heart failure who was admitted on 10/19/2020 for increasing shortness of breath and edema. The patient presented to the office for a 6 month follow up visit. He had complaints of dizziness, lightheaded, increased SOB all the time, chest pain and B/L lower extremity edema. The patient walked for about 3 mins. in the office and his O2 dropped to 87%. The patient was then placed on O2 at 2L NC and his O2 came up to 96%. He said his shortness of breath is associated with bilateral lower extremity edema and started getting worse 6 weeks ago. He also noticed weight gain. He has on and off chest pain which he describes as 6/10 right parasternal area nonradiating pressure-like which sometimes goes on the whole day. He felt fatigue and has no energy at all. He admitted to taking his medications but is noncompliant with his low-salt diet. He also at times has occasional wheezing but denies coughing, fever or chills. He does not take his inhalers anymore but continues to do DuoNeb at home. He was then admitted under observation to the medical surgical floor for further evaluation and treatment. His BNP was elevated at 1992 but not very much from his last one of 1973 on 03/10/2019. His chest x-ray showed-Findings: There is borderline cardiomegaly. Vascularity is prominent but still within normal limits. Mild chronic interstitial prominence. There are no focal infiltrates or effusions. There are mild degenerative changes in the thoracic spine. There are atherosclerotic calcifications. IMPRESSION: CHRONIC FINDINGS DISCUSSED. NO ACUTE CARDIOPULMONARY DISEASE IDENTIFIED. We diuresed patient with 80 mg of IV Lasix doubling his usual dose of oral furosemide at 40 mg p.o. twice daily. He has lost about 3.4 kg and diuresed more than a liter. His edema is improved. We will walk patient in the floor and if his oxygen does not drop down we will discharge patient today. I deferred doing a follow-up echocardiogram as his acute exacerbation looks more due to his noncompliance of low-salt diet rather than progression of his cardiac dysfunction or worsening of his pulmonary hypertension. Procedures Performed: none Results and Findings: Lab Pending Results 10/19/20 14:43: WBC 8.1, RBC 4.59 L, Hgb 13.9, Hct 43.0, MCV 93.7, MCH 30.3, MCHC 32.3, RDW 14.9 H, Plt Count 206, MPV 11.0, Neutrophils % (Manual) 69, Lymphocytes % (Manual) 16 L, Monocytes % (Manual) 4, Eosinophils % (Manual) 4 H, Neutrophils # (Manual) 5.6, Lymphocytes # (Manual) 1.3 L, Monocytes # (Manual) 0.3, Eosinophils # (Manual) 0.3, Atypic/Reactive Lymphs 7 H, Platelet Estimate Normal, RBC Morphology Normal 10/19/20 14:43: PT 28.1 H, INR (Anticoag Therapy) 2.84 H 10/19/20 14:43: Sodium 139, Plasma Sodium 139, Potassium 3.6, Chloride 106, Carbon Dioxide 29.1, Anion Gap 7.5, BUN 18, Creatinine 1.09, Est GFR (Non-Af Amer) 70, BUN/Creatinine Ratio 16.5, Random Glucose 98, Calcium 8.2, Calcium Adj for Albumin 8.4, Total Bilirubin 1.2 H, AST 23, ALT 24, Alkaline Phosphatase 174 H, Creatine Kinase 40, CK-MB (CK-2) 0.9, CK-MB (CK-2) Rel Index 2.3, Troponin I Less than 0.017, B-Natriuretic Peptide 1992 H, Total Protein 7.1, Albumin 3.4, Triglycerides 67, Cholesterol 134, LDL Cholesterol 79, VLDL Cholesterol 13, HDL Cholesterol 42, Cholesterol/HDL Ratio 3.1 L 10/19/20 15:32: SARS-CoV-2 (PCR) Not detected 10/19/20 18:32: pCO2 48.3 H, pO2 30.7 L*, HCO3 29.0 H, Total CO2 30.5 H, Base Excess 3.3 H, ABG pH 7.40, ABG O2 Sat (Measured) 57.8 L 10/20/20 08:08: Sodium 142, Plasma Sodium 143 H, Potassium 3.5, Chloride 104, Carbon Dioxide 29.3, Anion Gap 12.2, BUN 18, Creatinine 1.26, Est GFR (Non-Af Amer) 59 L, BUN/Creatinine Ratio 14.3, Random Glucose 136 H D, Calcium 8.6 Discharge Location: Home Disposition: Home self-care Condition: Stable Discharge Activity: Activity as tolerated Discharge Diet: Low salt Referrals: Sindy Humphrey MD [Primary Care Provider] - Problem Oriented Discharge Instructions to Patient/Family: Heart Failure, [id number] Additional Patient Instructions (free text): Follow-up with Dr. Humphrey on October 25 at 10 a.m. Prescriptions (Any new or edited meds): hydrALAZINE HCL [Apresoline] 25 mg PO Q8H #90 tab Transmission Status: Pending to [id number] Furosemide [Lasix] 60 mg PO BID #180 tab Transmission Status: Pending to [id number] Albuterol Sulfate [Ventolin HFA] 1 puff IH Q6H PRN #1 inhaler PRN Reason: Shortness Of Breath/Wheezing Transmission Status: Pending to [id number] Complete Home Medications List: Complete Home Medication List: cholecalciferol (vitamin D3) 125 mcg (5,000 unit) tablet 5,000 unit PO DAILY 01/18/18 cyanocobalamin (vitamin B-12) 1,000 mcg tablet 1,000 mcg PO .MWF #36 tab 03/21/19 triamcinolone acetonide 0.1 % lotion 1 applic TP BID #60 ml 04/04/19 Warfarin Sodium [Coumadin] 2.5 mg PO MoFr@1700 tab 10/16/19 metoprolol succinate 100 mg tablet,extended release 24 hr 100 mg PO DAILY #90 tab 07/19/20 hydrocodone 5 mg-acetaminophen 325 mg tablet 1 tab PO Q6H PRN #90 tab 08/03/20 Gabapentin 300 mg PO TID 10/19/20 Losartan Potassium [Cozaar] 100 mg PO 1700 10/19/20 Warfarin Sodium 5 mg PO SUTUWETHSA 10/19/20 ipratropium 0.5 mg-albuterol 3 mg (2.5 mg base)/3 mL nebulization soln 3 ml IH TID PRN #180 ml 10/19/20 Albuterol Sulfate [Ventolin HFA] 1 puff IH Q6H PRN #1 inhaler 10/20/20 Furosemide [Lasix] 60 mg PO BID #180 tab 10/20/20 Potassium Chloride [K-Dur] 20 meq PO BIDWM tablet.sa 10/20/20 hydrALAZINE HCL [Apresoline] 25 mg PO Q8H #90 tab 10/20/20 Forms: Patient Portal Registration
[2020-10-20] MEDS ORDERED: hydrALAZINE HCL 25 MG TABLET PO SCH (08:45)
[2020-10-20] MEDS ORDERED: METOPROLOL SUCCINATE 100 MG TABLET.SA PO SCH (09:00)
[2020-10-20 09:21] LABS: INR 2.83 INR (0.92-1.08)
[2020-10-20 14:11] VITALS: BP 174/93
[2020-10-20] MEDS ORDERED: FUROSEMIDE 10 MG/ML VIAL IV SCH (17:00)
[2020-10-22] MEDS ORDERED: WARFARIN SODIUM 2.5 MG TABLET PO SCH ×2 (17:00)
== END 2020-10-20 13:39 | disposition home or self-care (01) ==
LOC: CCFAL → MS 12:45
PROVIDERS: ADMIT Internal Medicine; ATTEND Internal Medicine
DX: I48.20 Chronic atrial fibrillation, unspecified; J44.9 Chronic obstructive pulmonary disease, unspecified; I13.0 Hypertensive heart and chronic kidney disease with heart failure and stage 1 through stage 4 chronic kidney disease, or unspecified chronic kidney disease; J96.01 Acute respiratory failure with hypoxia; N18.30 Chronic kidney disease, stage 3 unspecified; R42 Dizziness and giddiness; Z87.891 Personal history of nicotine dependence; I50.23 Acute on chronic systolic (congestive) heart failure